=== PATIENT | female | born 1960 | race Caucasian/White ===

== ENCOUNTER 2018-05-16 08:55 | Emergency (ER) | payer MEDICAID ==
[2018-05-16] MEDS: KETOROLAC 30 MG INJ IM (09:48)
== END 2018-05-16 11:20 | disposition home or self-care (01) ==
LOC: FTE 08:55
DX: M25.511 Pain in right shoulder (principal); R07.89 Other chest pain; Z79.82 Long term (current) use of aspirin
CPT/HCPCS: 72040; 73030-RT; 96372; 99284-25